=== PATIENT | male | born 2000 | race African-American/Black ===

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

== ENCOUNTER 2019-09-25 21:34 | Emergency (ER) | payer MEDICAID ==
[~2019-09-25] VITALS: Ht 193 cm; Wt 84.8 kg
[~2019-09-25 21:34] MED LIST: CYCLOBENZAPRINE10 MG ORAL; IBUPROFEN600 MG ORAL
[2019-09-25 21:50] VITALS: BP 105/60
--- NOTE | 2019-09-25 21:50 | NUR ---
ED Nurse Note: Patient walked in to ED c/o head injury after he fell while playing football today at 1630. Per pt, he fell and hit his head on the ground. Denies LOC/ KO. No nausea/ vomiting. Not in any distress. Alert and orientedx4, verbally responsive. VSS.
[2019-09-25] MEDS ORDERED: IBUPROFEN600 MG ORAL (22:03)
--- NOTE | 2019-09-25 22:04 | Emergency Room Report ---
History of Present Illness General Chief Complaint: Head Injury Source: Patient Present Illness HPI This a 19-year-old male with no past medical history. He presents with complaint of head injury. He was involved in an spring practice for football. He was not wearing pads or helmet. He was doing a routine route for [employer]. Another player is walking in front of him and he tripped on the other player foot. He fell down and hit his head against the turf. Initially he said he got very dizzy he was seeing white spots. This occur this afternoon. Since then he still having headache to the left side. No nausea no vomiting. No focal deficit. Denies any other complaint. Pain is 5 out of 10. Allergies: Coded Allergies: NO KNOWN DRUG ALLERGIES (Unverified Allergy, Unknown, 11/23/14) Patient History Past Medical History: see triage record, old chart reviewed Past Surgical History: none Pertinent Family History: none Social History: Denies: smoking Immunizations: UTD Reviewed Nursing Documentation: PMH: Agreed; PSxH: Agreed Nursing Documentation-PMH Past Medical History: No Stated History Hx Cardiac Problems: No - ADHD Review of Systems Eye: Denies: eye pain, blurred vision ENT: Denies: ear pain, nose congestion, throat swelling Respiratory: Denies: cough, shortness of breath Cardiovascular: Denies: chest pain, palpitations Gastrointestinal: Denies: abdominal pain, diarrhea, nausea, vomiting Musculoskeletal: Denies: back pain, joint pain Skin: Denies: rash Neurological: Reports: headache; Denies: numbness Endocrine: Denies: increased thirst, increased urine Hematologic/Lymphatic: Denies: easy bruising All Other Systems: negative except mentioned in HPI Physical Exam Vital Signs Date Time Temp Pulse Resp B/P (MAP) Pulse Ox O2 Delivery O2 Flow Rate FiO2 09/25/19 21:40 97.7 80 16 105/60 (75) 97 Room Air Vitals normal Sp02 EP Interpretation: reviewed, normal General Appearance: well appearing, no apparent distress, alert Head: normocephalic, atraumatic, other - Tenderness over the left parietal area. No deformity or hematoma. Eyes: bilateral eye PERRL, bilateral eye EOMI ENT: hearing grossly normal, normal pharynx Neck: full range of motion, supple, no meningismus Respiratory: chest non-tender, lungs clear, normal breath sounds Cardiovascular #1: regular rate, rhythm, no murmur Gastrointestinal: normal bowel sounds, non tender, no mass, no organomegaly, no bruit, non-distended Musculoskeletal: back normal, normal range of motion, gait/station normal Psychiatric: mood/affect normal Medical Decision Making Diagnostic Impression: Primary Impression: Acute head injury Qualified Codes: S09.90XA - Unspecified injury of head, initial encounter Additional Impression: Contusion Qualified Codes: S00.03XA - Contusion of scalp, initial encounter ER Course This patient presents with head injury and concussion. I will place him on the [place] concussion return to play protocol. No evidence of any internal bleeding or skull fracture. Will discharge home. CT/MRI/US Diagnostic Results CT/MRI/US Diagnostic Results : Imaging Test Ordered: CT head Impression Per radiologist negative Last Vital Signs Date Time Temp Pulse Resp B/P (MAP) Pulse Ox O2 Delivery O2 Flow Rate FiO2 09/25/19 21:50 97.7 80 16 105/60 97 Room Air Status: improved Disposition: HOME, SELF-CARE Condition: Stable Scripts Ibuprofen* (MOTRIN*) 600 Mg Tablet 600 MG ORAL THREE TIMES A DAY, #30 TAB 0 Refills Prov: Nirmal Syed MD 09/25/19 Additional Instructions: Follow-up with your doctor in 7 days. Follow-up with your epic trainer and swimming coach or instructor. You will be placed on to [place] concussion return to play protocol. Return if worse. Nirmal Syed MD Sep 25, 2019 22:04
--- NOTE | 2019-09-25 22:08 | NUR ---
ED Nurse Note: Pt was taken for CT, ambulatory. Accompanied by a tech.
--- NOTE | 2019-09-25 22:13 | NUR ---
ED Nurse Note: Pt came back from the CT, not in any distress.
[2019-09-25 22:15] VITALS: BP 105/60
--- NOTE | 2019-09-25 22:15 | NUR ---
ED Nurse Note: Pt cleared by ERMD for discharge. DC instructions/prescription was given and explained to pt and verbalized understanding of teachings. All medical deviecs such as ID band removed. Pt is AAO x4, ambulatory and left with all personal belongings.
--- NOTE | 2019-09-25 22:24 | Diagnostic Imaging Report ---
Indications: Head trauma Technique: Spiral acquisitions obtained through the brain. Angled axial and coronal 5 x 5 mm slices were reconstructed. Total dose length product 1018 mGycm. CTDI vol(s) 53 mGy. Dose reduction achieved using automated exposure control Comparison: None. Findings: No acute intracranial hemorrhage or edema. No mass effect nor midline shift. Normal kramer-white differentiation. Normal size ventricles and extra axial CSF spaces. The calvarium is intact. Mucous retention cysts are seen in the right maxillary sinus. The mastoids are clear. The orbits are unremarkable. Impression: Negative Incidental finding right maxillary sinus mucous retention cysts This agrees with the preliminary interpretation provided overnight by [facility]. The CT scanner at [facility] is accredited by the [employer] and the scans are performed using protocols designed to limit radiation exposure to as low as reasonably achievable to attain images of sufficient resolution adequate for diagnostic evaluation.
== END 2019-09-25 22:15 | disposition home or self-care (01) ==
LOC: EMR 22:00
DX: S09.90XA Unspecified injury of head, initial encounter (principal); S00.03XA Contusion of scalp, initial encounter; W01.198A Fall on same level from slipping, tripping and stumbling with subsequent striking against other object, initial encounter; Y93.61 Activity, american tackle football; Y92.9 Unspecified place or not applicable; R42 Dizziness and giddiness; R51 Headache; J34.1 Cyst and mucocele of nose and nasal sinus
CPT/HCPCS: 70450; Z7502; 99284

== ENCOUNTER 2020-06-26 12:01 | Emergency (ER) | payer MEDICAID ==
[~2020-06-26] VITALS: Ht 193 cm; Wt 89.8 kg
[2020-06-26 12:22] VITALS: BP 122/80
--- NOTE | 2020-06-26 12:22 | Emergency Room Report ---
History of Present Illness General Chief Complaint: Male Urogenital Problems Source: Patient Present Illness HPI Patient is a 19-year-old male denies any significant past medical history who presents to the ER complaining of hematuria. Patient states that he had an episode of hematuria 2 days ago and again today. He denies any fever or chills. He denies any nausea or vomiting. She denies any abdominal pain or back pain. He denies any diarrhea. He denies any dysuria. He denies any history of similar symptoms. He denies any penile trauma. He states that he passed some small clots this morning. Allergies: Coded Allergies: NO KNOWN DRUG ALLERGIES (Unverified Allergy, Unknown, 11/23/14) COVID-19 Screening Contact w/high risk pt: No Experienced COVID-19 symptoms?: No COVID-19 Testing performed BIOENGINEER: No Patient History Reviewed Nursing Documentation: PMH: Agreed; PSxH: Agreed Nursing Documentation-PMH Past Medical History: No Stated History Hx Cardiac Problems: No - ADHD Review of Systems All Other Systems: negative except mentioned in HPI Physical Exam Vital Signs Date Time Temp Pulse Resp B/P (MAP) Pulse Ox O2 Delivery O2 Flow Rate FiO2 06/26/20 12:05 97.7 96 17 125/81 (96) 98 Room Air Sp02 EP Interpretation: reviewed, normal General Appearance: no apparent distress, alert, GCS 15, non-toxic Head: normocephalic, atraumatic Eyes: bilateral eye normal inspection, bilateral eye PERRL ENT: hearing grossly normal, normal pharynx, no angioedema, normal voice Neck: full range of motion, supple/symm/no masses Respiratory: chest non-tender, lungs clear, normal breath sounds, speaking full sentences Cardiovascular #1: regular rate, rhythm, no edema Gastrointestinal: non tender, soft, non-distended, no guarding, no rebound Rectal: deferred Genitourinary: no CVA tenderness Musculoskeletal: normal range of motion Neurologic: backup administrator III-XII nml as tested, oriented x3 Psychiatric: no suicidal/homicidal ideation Skin: no rash Lymphatic: no adenopathy Medical Decision Making Diagnostic Impression: Primary Impression: Hematuria ER Course Patient's labs demonstrate hematuria no evidence for infection. Labs demonstrate no acute renal insufficiency or elevated INR or anemia. CT demonstrates no acute pathology. I have advised the patient to follow-up with urology. I told that he needs to be worked up for things such as cancer. He demonstrated understanding. After discussing risks and benefits of further diagnostics, treatment plans, as well as indications for and risks of admission, the patient is agreeable to being discharged home. I have explained that their evaluation and treatment in the emergency department today is an important step towards them achieving better health but that their evaluation today is not intended to replace further evaluation and treatment by a physician in their local clinic. I have explained that while the current findings suggest no immediate life threatening emergency they will require further evaluation and treatment by a physician of their choice in their area. They understand that it will be necessary for them to review the final reports of their ED visit with their clinic physician. We have reviewed indications for return to the Emergency Department. I have explained that additional time may need to pass and/or additional testing as an outpatient may be necessary before a definitive diagnosis can be made. They tell me they are willing to follow up as instructed within the timeframe I recommend. They appear to understand what we discussed. Additionally they understand that if they are unable to be seen by an outpatient physician they are welcome, and in fact should, return to the Emergency Department for a repeat evaluation. The patient is stable at time of discharge. Laboratory Tests Test 06/26/20 12:20 06/26/20 13:03 White Blood Count 6.3 K/UL (4.8-10.8) Red Blood Count 5.40 M/UL (4.70-6.10) Hemoglobin 16.5 G/DL (14.2-18.0) Hematocrit 47.0 % (42.0-52.0) Mean Corpuscular Volume 87 FL (80-99) Mean Corpuscular Hemoglobin 30.5 PG (27.0-31.0) Mean Corpuscular Hemoglobin Concent 35.1 G/DL (32.0-36.0) Red Cell Distribution Width 13.1 % (11.6-14.8) Platelet Count 251 K/UL (150-450) Mean Platelet Volume 8.6 FL (6.5-10.1) Neutrophils (%) (Auto) 40.4 % (45.0-75.0) L Lymphocytes (%) (Auto) 46.3 % (20.0-45.0) H Monocytes (%) (Auto) 9.1 % (1.0-10.0) Eosinophils (%) (Auto) 2.5 % (0.0-3.0) Basophils (%) (Auto) 1.7 % (0.0-2.0) Prothrombin Time 12.0 SEC (9.30-11.50) H Prothrombin Time INR 1.1 (0.9-1.1) Activated Partial Thromboplast Time 29 SEC (23-33) Sodium Level 140 MMOL/L (136-145) Potassium Level 4.3 MMOL/L (3.5-5.1) Chloride Level 105 MMOL/L (98-107) Carbon Dioxide Level 26 MMOL/L (21-32) Anion Gap 9 mmol/L (5-15) Blood Urea Nitrogen 17 mg/dL (7-18) Creatinine 1.2 MG/DL (0.55-1.30) Estimated Glomerular Filtration Rate > 60 mL/min (>60) Glucose Level 126 MG/DL (74-106) H Calcium Level 9.3 MG/DL (8.5-10.1) Magnesium Level 1.9 MG/DL (1.8-2.4) Total Bilirubin 0.4 MG/DL (0.2-1.0) Aspartate Amino Transferase (AST) < 5 U/L (15-37) L Alanine Aminotransferase (ALT) 11 U/L (12-78) L Alkaline Phosphatase 59 U/L (46-116) Total Protein 8.0 G/DL (6.4-8.2) Albumin 4.2 G/DL (3.4-5.0) Globulin 3.8 g/dL Albumin/Globulin Ratio 1.1 (1.0-2.7) Lipase 128 U/L (73-393) Urine Color Pale yellow Urine Appearance Clear Urine pH 8 (4.5-8.0) Urine Specific [place] 1.010 (1.005-1.035) Urine Protein Negative (NEGATIVE) Urine Glucose (UA) Negative (NEGATIVE) Urine Ketones Negative (NEGATIVE) Urine Blood 3+ (NEGATIVE) H Urine Nitrite Negative (NEGATIVE) Urine Bilirubin Negative (NEGATIVE) Urine Urobilinogen Normal MG/DL (0.0-1.0) Urine Leukocyte Esterase Negative (NEGATIVE) Urine RBC 5-10 /HPF (0 - 0) H Urine WBC 0-2 /HPF (0 - 0) Urine Squamous Epithelial Cells Occasional /LPF Urine Bacteria Occasional /HPF (NONE) Urine Opiates Screen Negative (NEGATIVE) Urine Barbiturates Screen Negative (NEGATIVE) Phencyclidine (PCP) Screen Negative (NEGATIVE) Urine Amphetamines Screen Negative (NEGATIVE) Urine Benzodiazepines Screen Negative (NEGATIVE) Urine Cocaine Screen Negative (NEGATIVE) Urine Marijuana (THC) Screen Positive (NEGATIVE) H Last Vital Signs Date Time Temp Pulse Resp B/P (MAP) Pulse Ox O2 Delivery O2 Flow Rate FiO2 06/26/20 12:05 97.7 96 17 125/81 (96) 98 Room Air Disposition: HOME, SELF-CARE Condition: Stable Referrals: NON PHYSICIAN (PCP) Additional Instructions: The patient was provided with discharge instructions, notified to follow-up with a primary care doctor and or specialist in the next 24-48 hours, and to return to the ED if they have worsening of their symptoms. Please note that this report is being documented using Enclarity technology. This can lead to erroneous entry secondary to incorrect interpretation by the dictating instrument. Lisa Steele M.D. Jun 26, 2020 12:22
[2020-06-26 12:42] LABS: BASOPHILS % (AUTO) 1.7 % (0.0-2.0); EOSINOPHILS % (AUTO) 2.5 % (0.0-3.0); HEMOGLOBIN 16.5 G/DL (14.2-18.0); LYMPHOCYTES % (AUTO) 46.3 % (20.0-45.0); MEAN CORPUSCULAR VOLUME 87 FL (80-99); MONOCYTES % (AUTO) 9.1 % (1.0-10.0); NEUTROPHILS % (AUTO) 40.4 % (45.0-75.0); PLATELET COUNT 251 K/UL (150-450); RED CELL DISTRIBUTION WIDTH 13.1 % (11.6-14.8); WHITE BLOOD COUNT 6.3 K/UL (4.8-10.8)
[2020-06-26 12:44] LABS: ANION GAP 9 mmol/L (5-15); BLOOD UREA NITROGEN 17 mg/dL (7-18); CALCIUM 9.3 MG/DL (8.5-10.1); CARBON DIOXIDE 26 MMOL/L (21-32); CHLORIDE 105 MMOL/L (98-107); CREATININE 1.2 MG/DL (0.55-1.30); POTASSIUM 4.3 MMOL/L (3.5-5.1); SODIUM 140 MMOL/L (136-145)
[2020-06-26 12:46] LABS: INR 1.1 (0.9-1.1)
[2020-06-26 12:50] LABS: ALANINE AMINOTRANSFERASE 11 U/L (12-78); ALBUMIN 4.2 G/DL (3.4-5.0); ALBUMIN/GLOBULIN RATIO 1.1 (1.0-2.7); ALKALINE PHOSPHATASE 59 U/L (46-116); ASPARTATE AMINO TRANSFERASE < 5 U/L (15-37); BILIRUBIN,TOTAL 0.4 MG/DL (0.2-1.0)
[2020-06-26 13:26] LABS: APPEARANCE,URINE CLEAR; BILIRUBIN, URINE NEGATIVE (NEGATIVE); COLOR,URINE PALE YELLOW; GLUCOSE, URINE (UA) NEGATIVE (NEGATIVE); KETONES,URINE NEGATIVE (NEGATIVE); LEUKOCYTE ESTERASE ,URINE NEGATIVE (NEGATIVE); NITRITE,URINE NEGATIVE (NEGATIVE); PH,URINE 8 (4.5-8.0); PROTEIN,URINE NEGATIVE (NEGATIVE); UROBILINOGEN,URINE NORMAL MG/DL (0.0-1.0)
--- NOTE | 2020-06-26 14:05 | Diagnostic Imaging Report ---
CT ABDOMEN + PELVIS Without Contrast HISTORY: Abdominal pain TECHNIQUE: One or more of the following dose reduction techniques were used: automated exposure control, adjustment of the mA and/or kV according to patient size, use of iterative reconstruction technique. One or more of the following dose reduction techniques were used: automated exposure control, adjustment of the mA and/or kV according to patient size, use of iterative reconstruction technique. Total Exam volume computed tomography dose index (CTDIvol) = 6.0 mGy and Dose Length Product (DLP) = 340.8mGY-c TECHNIQUE: Multiple, contiguous axial cuts of the abdomen and pelvis are obtained from the lung bases to the ischial tuberosities. No IV or oral contrast is given. Sagittal and coronal reformatted images are available. COMPARISON: None FINDINGS: The lung bases are clear. The liver and spleen are normal in size and free of mass lesions. The gallbladder, bile ducts and pancreas are normal. The adrenal gland are unremarkable. The kidneys are normal in size and contour. No stones, lesions or hydronephrosis. The appendix is unremarkable. Constipation demonstrated with stool throughout the large bowel. Underdistended urinary bladder. No free air or free fluid or bowel obstruction.. Aorta is normal caliber. No adenopathy or extraluminal air. The osseous structures are intact. Mild curvature of the spine to the left. IMPRESSION: No hydronephrosis or nephrolithiasis. Normal appendix. Constipation demonstrated. Underdistended urinary bladder. No free air or free fluid or bowel obstruction.
[2020-06-26 14:16] VITALS: BP 126/82
== END 2020-06-26 14:16 | disposition home or self-care (01) ==
LOC: EMR 12:11
DX: R31.9 Hematuria, unspecified (principal); F90.9 Attention-deficit hyperactivity disorder, unspecified type
CPT/HCPCS: 36415; 74176; 80053; 80307; 81003; 83690; 83735; 85025; 85610; 85730; 96360; Z7502; 99284

== ENCOUNTER 2020-07-08 16:36 | Emergency (ER) | payer MEDICAID ==
[~2020-07-08] VITALS: Ht 193 cm; Wt 88.9 kg
[2020-07-08] MEDS ORDERED: Morphine Sulfate 4mg/ml Inj (IV USE ONLY) IVP ONE (17:00)
[2020-07-08 17:05] VITALS: BP 114/61
--- NOTE | 2020-07-08 17:10 | NUR ---
ED Nurse Note: Pt walked into ED with R shoulder dislocation. Pt states he has had R shulder dislocation multiple times. Pt is alert and ox4, ambulatory. Pt has been seen by ERMD. No wounds. Pain 05/01. Set up on monitor.
--- NOTE | 2020-07-08 17:20 | NUR ---
ED Nurse Note: Mod sedation consent signed by patient.
--- NOTE | 2020-07-08 17:37 | NUR ---
ED Nurse Note: Moderate sedation started at 1737 and ended at 1738. Propofol 7 mL, [address] Kenyon. No acute distress. RT Kvng Gonzalez RN, Ellie RN, and Dr Kenyon present at bedside. Pt set up on monitor. Post procedure, patient is drowsy, a&ox4.
[2020-07-08 17:51] VITALS: BP 132/65
[2020-07-08] MEDS ORDERED: IBUPROFEN600 M1 ORAL (17:56)
--- NOTE | 2020-07-08 18:05 | Emergency Room Report ---
History of Present Illness General Chief Complaint: Upper Extremity Injury Source: Patient Present Illness HPI Disclaimer: Please note that this report is being documented using DRAGON technology. This can lead to erroneous entry secondary to incorrect interpretation by the dictating instrument. HPI: 27-year old male presents for right shoulder pain. Patient apparently was playing basketball when his shoulder became dislocated. He has a history of multiple dislocations in the past. Complains of 8 out of 10 pain in the right shoulder that is worse with movement. No other injuries reported. 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: No Patient History Reviewed Nursing Documentation: PMH: Agreed; PSxH: Agreed Nursing Documentation-PMH Past Medical History: No History, Except For Hx Cardiac Problems: No - ADHD Review of Systems All Other Systems: negative except mentioned in HPI Physical Exam Vital Signs Date Time Temp Pulse Resp B/P (MAP) Pulse Ox O2 Delivery O2 Flow Rate FiO2 07/08/20 16:37 98.8 92 16 106/65 (79) 100 Room Air Sp02 EP Interpretation: reviewed, normal General Appearance: well appearing, no apparent distress Head: normocephalic, atraumatic Eyes: bilateral eye PERRL, bilateral eye EOMI ENT: hearing grossly normal, moist mucus membranes Neck: full range of motion, supple Respiratory: lungs clear, normal breath sounds, no rhonchi, no respiratory distress, no retraction, no wheezing Cardiovascular #1: normal peripheral pulses, regular rate, rhythm, no murmur Gastrointestinal: non tender, soft, non-distended, no guarding Musculoskeletal: other - Right shoulder with noted deformity, sensation and motor intact distally, 2+ radial pulses in the right arm Neurologic: alert, oriented x3, no focal defects Skin: normal color, warm/dry Procedures Joint Reduction Joint Reduction : Consent: Verbal Joint Reduction Site: shoulder (R) Procedural Sedation: Yes Reduction Attempts: Other - 2 attempts Pre-Procedure NV Exam: Yes Post-Procedure NV Exam: Yes Post Joint Reduction Film: joint reduced Patient Tolerated: Well Complications: None Procedural Sedation Total Time: 0001 Medical Decision Making Diagnostic Impression: Primary Impression: Recurrent dislocation, right shoulder ER Course Patient presents for right shoulder dislocation. He has had multiple right shoulder dislocations in the past. Patient given IV morphine and I did attempt reduction without sedation however this was unsuccessful so 70 mg of propofol was given for sedation, the right shoulder was successfully reduced. Patient was placed in a shoulder immobilizer. For discharge with outpatient follow-up. Return precautions given. Other X-Ray Diagnostic Results Other X-Ray Diagnostic Results : X-Ray ordered: Right shoulder # of Views/Limited Vs Complete: 2 View Indication: Other - Postreduction EP Interpretation: Yes Interpretation: no fractures Impression: Other - Successful reduction of right shoulder Electronically Signed by: Umesh Kenyon MD Last Vital Signs Date Time Temp Pulse Resp B/P (MAP) Pulse Ox O2 Delivery O2 Flow Rate FiO2 07/08/20 17:51 98.0 82 20 99 Room Air 103 07/08/20 17:05 114/61 Status: improved Disposition: HOME, SELF-CARE Condition: Improved Scripts Ibuprofen* (MOTRIN*) 600 Mg Tablet 600 MG ORAL Q6H PRN for For Pain, #30 TAB 0 Refills Prov: Umesh Kenyon M.D. 07/08/20 Patient Instructions: Shoulder Dislocation, [id number] Additional Instructions: Patient is instructed to follow-up with her primary care doctor, primary care clinic or [facility] in 1 to 2 days. Patient instructed to return for any worsening symptoms or concerns. Umesh Kenyon M.D. Jul 08, 2020 18:05
--- NOTE | 2020-07-08 18:47 | NUR ---
ER DISCHARGE NOTE: Patient is cleared to be discharged per ERMD, pt is aox4, on room air, with stable vital signs. pt was given dc and prescription instructions, pt was able to verbalize understanding, pt id band removed. pt is able to ambulate with steady gait. pt took all belongings. Pt immoblizer applkied. Moderate sed discharge criteria met. Pt able to ambulate, void, no drowsiness upon discharge.
[2020-07-08 18:48] VITALS: BP 135/67
--- NOTE | 2020-07-09 17:47 | Diagnostic Imaging Report ---
Indication: Pain status post fall Technique: 3 views of the right shoulder Comparison: none Findings: No acute fracture. No dislocation. The joint spaces are preserved Impression: Negative
== END 2020-07-08 18:49 | disposition home or self-care (01) ==
LOC: EDBD 16:36 → EMR 16:56
DX: S43.004A Unspecified dislocation of right shoulder joint, initial encounter (principal); F90.9 Attention-deficit hyperactivity disorder, unspecified type; Y93.67 Activity, basketball; Y92.9 Unspecified place or not applicable
CPT/HCPCS: 23655; 73030; 96374; J2270; J2704; Z7502; 99284